=== PATIENT | female | born 1960 | race Caucasian/White ===

== ENCOUNTER 2016-12-13 05:15 | Day surgery (SDC) | payer BC ==
[2016-12-13] MEDS ORDERED: Alum Hydrox/Mag Hydrox/Simeth 30 ML, Lidocaine 2% 15 ML PO ONE ×2 (05:29)
[2016-12-13] MEDS ORDERED: Lidocaine 2% Viscous Solution 15 ML Cup ONE (05:30)
[2016-12-13] MEDS ORDERED: Aluminum Hydroxide/Magnesium Hydroxide/Simethicone Susp 30 ML Cup ONE (05:30)
[2016-12-13] MEDS: Nitroglycerin 0.4 MG Tab.SL SL PRN ×2 (05:45→05:50)
--- NOTE | 2016-12-13 05:53 | EDM.PDOC ---
<Dawson Campbell - Last Filed: 12/13/16 05:48> ED HPI GENERAL MEDICAL PROBLEM - General Chief Complaint: Abdominal Pain Stated Complaint: CHEST DISCOMFORT Time Seen by Provider: 12/13/16 05:31 Source of Information: Reports: Patient History Limitations: Reports: No Limitations - History of Present Illness INITIAL COMMENTS - FREE TEXT/NARRATIVE: This lady comes in complaining of chest pain. She Describes it as a substernal chest pressure which radiates to her low back. It began about midnight or roughly 5-1/2 hours ago. She took a couple of Tums tablets but that didn't seem to help. Drinking water didn't help either she describes herself feeling cold and clammy. She did not get nauseated or have shortness of breath. She had something like this several years ago but she's never been diagnosed with any kind of heart disease. She is a nonsmoker and there are no first-degree relatives with heart disease she denies any chronic illnesses Upper Epigastric Pain Score (Numeric/FACES): 8 - Related Data Allergies Allergy/AdvReac Type Severity Reaction Status Date / Time nystatin Allergy Hives Verified 12/13/16 05:28 Home Meds: Home Meds Gemfibrozil [Lopid] 600 mg PO BIDAC 02/01/15 [History] Omeprazole [Prilosec] 20 mg PO BID 02/01/15 [History] Sertraline [Zoloft] 50 mg PO DAILY 02/01/15 [History] Thyroid,Pork [[place] Thyroid] 30 mg PO DAILY 02/01/15 [History] Triamcinolone Acetonide [Kenalog 0.1% Lotion] 1 applic TOP BID PRN 02/01/15 [ History] Clotrimazole [Lotrimin AF 1% Crm] 1 applic TOP BID 08/22/15 [History] Ondansetron [Zofran ODT] 4 mg PO Q4HR PRN #30 tab.dis 08/29/15 [Rx] Anastrozole [Arimidex] 1 mg PO DAILY 12/13/16 [History] Past Medical History HEENT History: Reports: Allergic Rhinitis, Impaired Vision Cardiovascular History: Reports: None Respiratory History: Reports: None Gastrointestinal History: Reports: Gastritis, GERD, Hiatal Hernia Genitourinary History: Reports: None BILLER History: Reports: Musculoskeletal History: Reports: Arthritis Neurological History: Reports: Head Trauma Psychiatric History: Reports: None Endocrine/Metabolic History: Reports: Hypothyroidism, Obesity/BMI 30+ Hematologic History: Reports: Anemia, Blood Transfusion(s) Immunologic History: Reports: None Oncologic (Cancer) History: Reports: Breast Dermatologic History: Reports: None - Infectious Disease History Infectious Disease History: Reports: Chicken Pox, Measles - Past Surgical History Head Surgeries/Procedures: Reports: None HEENT Surgical History: Reports: Naso-Sinus Surgery Female Surgical History: Reports: D&C, Mastectomy, Tubal Ligation Oncologic Surgical History: Reports: Biopsy of Breast Social & Family History - Family History HEENT: Reports: Impaired Vision, Macular Degeneration Cardiac: Reports: Afib Respiratory: Reports: None GI: Reports: GERD, Hiatal Hernia : Reports: None OBGYN: Reports: None Musculoskeletal: Reports: Arthritis Neurological: Reports: Neuropathy, Peripheral, Other (See Below) Other Neurological Family History: MANAN GEHRIGS DISEASE Psychiatric: Reports: None Endocrine/Metabolic: Reports: None Hematologic: Reports: None Immunologic: Reports: None Dermatologic: Reports: None Oncologic: Reports: Ovarian, Skin - Tobacco Use Smoking Status *Q: Never Smoker Second Hand Smoke Exposure: No - Caffeine Use Caffeine Use: Reports: Coffee - Alcohol Use Days Per Week of Alcohol Use: 2 Number of Drinks Per Day: 1 Total Drinks Per Week: 2 - Recreational Drug Use Recreational Drug Use: No ED ROS GENERAL - Review of Systems Review Of Systems: ROS reveals no pertinent complaints other than HPI. ED EXAM, GENERAL - Physical Exam Exam: See Below Exam Limited By: No Limitations General Appearance: Alert, WD/WN (Mild obesity), Mild Distress Eye Exam: Bilateral Eye: Normal Inspection Neck: Normal Inspection Respiratory/Chest: Lungs Clear Cardiovascular: Regular Rate, Rhythm, No Murmur Peripheral Pulses: 2+: Radial (L), Radial (R), Posterior Tibial (L), Posterior Tibial (R) GI/Abdominal: Non-Tender Extremities: Normal Inspection Neurological: Alert, Oriented Psychiatric: Normal Affect Skin Exam: Warm, Dry Course - Vital Signs Last Recorded V/S: Last Vital Signs Temp 99.0 F 12/13/16 16:48 Pulse 76 12/13/16 16:48 Resp 20 12/13/16 16:48 BP 164/62 H 12/13/16 16:48 Pulse Ox 95 10/29/17 16:48 - Orders/Labs/Meds Orders: Active Orders 24 hr Category Date Time Status Patient Status [ADT] Routine ADT 12/13/16 12:37 Active Ambulate [RC] ASDIRECTED Care 12/13/16 12:37 Active Ambulate [RC] PER UNIT ROUTINE Care 12/13/16 12:37 Active Antiembolic Devices [RC] .Routine Care 12/13/16 12:40 Active Notify Provider Vital Signs [RC] PRN Care 12/13/16 12:39 Active Oxygen Therapy [RC] PRN Care 12/13/16 12:37 Active Pulse Oximetry [RC] CONTINUOUS Care 12/13/16 12:39 Active RT Incentive Spirometry [RC] ASDIRECTED Care 12/13/16 12:37 Active Up With Assistance [RC] ASDIRECTED Care 12/13/16 12:37 Active Up ad Arcelia [RC] ASDIRECTED Care 12/13/16 12:37 Active Up to Chair [RC] ASDIRECTED Care 12/13/16 12:37 Active VTE/DVT Education [RC] Click to Edit Care 12/13/16 12:40 Active Vital Signs [RC] PER UNIT ROUTINE Care 12/13/16 12:37 Active Respiratory Care Assess and Treatment [CONS] Routine Cons 12/13/16 12:37 Active Advance Diet Instructions [DIET] Diet 12/13/16 Dinner Active Abdomen Ltd [US] Stat Exams 12/13/16 07:48 Taken Ang Chest [CT] Stat Exams 12/13/16 06:01 Taken CTA Abd Pelv w Cont [CT] Stat Exams 12/13/16 06:01 Taken Chest 1V Frontal [CR] Urgent Exams 12/13/16 05:29 Taken CBC W/O DIFF,HEMOGRAM [HEME] AM Lab 12/14/16 05:11 Ordered CULTURE ANAEROBIC [RM] Routine Lab 12/13/16 11:53 Results CULTURE WOUND + SMEAR [RM] Routine Lab 12/13/16 11:53 Results HEPATIC FUNCTION PANEL,HFP [CHEM] AM Lab 12/14/16 05:11 Ordered Acetaminophen/HYDROcodone [Ravia 325-5 MG] Med 12/13/16 15:21 Active 1 - 2 tab PO Q4H PRN Anastrozole [Arimidex] Med 12/13/16 14:00 Active 1 mg PO DAILY Clotrimazole [Lotrimin AF 1% Crm] Med 12/13/16 12:45 Active 0 gm TOP BID D5 1/2 NS w/ 20 mEq/L KCl 1,000 ml Med 12/13/16 12:45 Active IV ASDIRECTED Docusate Sodium [Colace] Med 12/13/16 12:37 Active 100 mg PO BID PRN Gemfibrozil [Lopid] Med 12/13/16 16:30 Active 600 mg PO BIDAC Nitroglycerin [Nitrostat] Med 12/13/16 05:38 Active 0.4 mg SL Q5M PRN Ondansetron [Zofran ODT] Med 12/13/16 12:34 Active 4 mg PO Q4H PRN Ondansetron [Zofran] Med 12/13/16 12:37 Active 4 mg IVPUSH Q6H PRN Pantoprazole [ProTONIX] Med 12/13/16 14:00 Active 40 mg PO ACBREAKFAST Sertraline [Zoloft] Med 12/13/16 21:00 Active 50 mg PO BEDTIME Thyroid [[place] Thyroid] Med 12/13/16 14:00 Active 30 mg PO DAILY Triamcinolone Acetonide [Kenalog 0.1% Lotion] Med 12/13/16 12:34 Active 1 applic TOP BID PRN hydrOXYzine HCl [Vistaril] Med 12/13/16 15:23 Active 50 - 75 mg IM Q6H PRN Abdominal Binder [OM.PC] Per Unit Routine Oth 12/13/16 12:39 Ordered DVT/VTE Prophylaxis Reflex [OM.PC] Per Unit Routine Oth 12/13/16 12:40 Ordered Sequential Compression Device [OM.PC] Routine Oth 12/13/16 12:37 Ordered Resuscitation Status Routine Resus Stat 12/13/16 12:37 Ordered EKG 12 Lead [EK] Urgent Ther 12/13/16 05:29 Ordered EKG 12 Lead [EK] Urgent Ther 12/13/16 06:07 Ordered Medication Orders Hydrocodone Bitart/Acetaminophen (Ravia 325-5 Mg) 1 - 2 tab PO Q4H PRN PRN Reason: Pain Last Admin: 12/13/16 16:05 Dose: 1 tab Anastrozole (Arimidex) 1 mg PO DAILY KIMBER Last Admin: 12/13/16 14:38 Dose: 1 mg Clotrimazole (Lotrimin Af 1% Crm) 0 gm TOP BID [facility] Last Admin: 12/13/16 14:35 Dose: Not Given Docusate Sodium (Colace) 100 mg PO BID PRN PRN Reason: Constipation Gemfibrozil (Lopid) 600 mg PO BIDAC [facility] Last Admin: 12/13/16 16:46 Dose: 600 mg Hydroxyzine HCl (Vistaril) 50 - 75 mg IM Q6H PRN PRN Reason: Pain (moderate 4-6) Potassium Chloride/Dextrose/Sod Cl (D5 1/2 Ns W/ 20 Meq/L Kcl) 1,000 mls @ 125 mls/hr IV ASDIRECTED [facility] Last Admin: 12/13/16 13:43 Dose: 125 mls/hr Nitroglycerin (Nitrostat) 0.4 mg SL Q5M PRN PRN Reason: Chest Pain Last Admin: 12/13/16 05:50 Dose: 0.4 mg Admin: 12/13/16 05:45 Dose: 0.4 mg Triamcinolone Acetonide [Kenalog 0 .1% Lotion]-Ptom 1 applic TOP BID PRN PRN Reason: Rash Ondansetron HCl (Zofran Odt) 4 mg PO Q4H PRN PRN Reason: Nausea Ondansetron HCl (Zofran) 4 mg IVPUSH Q6H PRN PRN Reason: Nausea/Vomiting Last Admin: 12/13/16 13:43 Dose: 4 mg Pantoprazole Sodium (Protonix) 40 mg PO ACBREAKFAST [facility] Last Admin: 12/13/16 14:37 Dose: 40 mg Sertraline HCl (Zoloft) 50 mg PO BEDTIME [facility] Thyroid ([place] Thyroid) 30 mg PO DAILY [facility] Last Admin: 12/13/16 14:37 Dose: 30 mg Labs: Laboratory Tests 12/13/16 12/13/16 12/13/16 Range/Units 05:29 05:29 05:58 WBC 6.3 (4.5-11.0) K/uL RBC 4.69 (3.30-5.50) M/uL Hgb 13.5 (12.0-15.0) g/dL Hct 39.0 (36.0-48.0) % MCV 83 (80-98) fL MCH 29 (27-31) pg MCHC 35 (32-36) % Plt Count 283 (150-400) K/uL Neut % (Auto) 84 H (36-66) % Lymph % (Auto) 12 L (24-44) % Ceiba % (Auto) 3 (2-6) % Eos % (Auto) 0 L (2-4) % Baso % (Auto) 0 (0-1) % D-Dimer, Quantitative 107 (0.0-400.0) ng/mL Sodium 139 L (140-148) mmol/L Potassium 3.5 L (3.6-5.2) mmol/L Chloride 103 (100-108) mmol/L Carbon Dioxide 26 (21-32) mmol/L Anion Gap 13.5 (5.0-14.0) mmol/L BUN 18 (7-18) mg/dL Creatinine 0.9 (0.6-1.0) mg/dL Est Cr Clr Drug Dosing 63.78 mL/min Estimated GFR (MDRD) > 60 (>60) Glucose 156 H (74-106) mg/dL Calcium 9.7 (8.5-10.1) mg/dL Total Bilirubin 0.4 (0.2-1.0) mg/dL AST 21 (15-37) U/L ALT 40 (12-78) U/L Alkaline Phosphatase 113 (46-116) U/L Troponin I 0.044 (0.000-0.056) ng/mL Total Protein 8.2 (6.4-8.2) g/dL Albumin 4.2 (3.4-5.0) g/dL Globulin 4.0 H (2.3-3.5) g/dL Albumin/Globulin Ratio 1.1 L (1.2-2.2) Urine Color Urine Appearance Urine pH (4.5-8.0) Ur Specific Wayne (1.008-1.030) Urine Protein (NEGATIVE) mg/dL Urine Glucose (UA) (NEGATIVE) mg/dL Urine Ketones (NEGATIVE) mg/dL Urine Occult Blood (NEGATIVE) Urine Nitrite (NEGATIVE) Urine Bilirubin (NEGATIVE) Urine Urobilinogen (NORMAL) mg/dL Ur Leukocyte Esterase (NEGATIVE) Urine RBC (0-5) Urine WBC (0-5) Ur Epithelial Cells Amorphous Sediment Urine Bacteria Urine Mucus 12/13/16 Range/Units 08:58 WBC (4.5-11.0) K/uL RBC (3.30-5.50) M/uL Hgb (12.0-15.0) g/dL Hct (36.0-48.0) % MCV (80-98) fL MCH (27-31) pg MCHC (32-36) % Plt Count (150-400) K/uL Neut % (Auto) (36-66) % Lymph % (Auto) (24-44) % Ceiba % (Auto) (2-6) % Eos % (Auto) (2-4) % Baso % (Auto) (0-1) % D-Dimer, Quantitative (0.0-400.0) ng/mL Sodium (140-148) mmol/L Potassium (3.6-5.2) mmol/L Chloride (100-108) mmol/L Carbon Dioxide (21-32) mmol/L Anion Gap (5.0-14.0) mmol/L BUN (7-18) mg/dL Creatinine (0.6-1.0) mg/dL Est Cr Clr Drug Dosing mL/min Estimated GFR (MDRD) (>60) Glucose (74-106) mg/dL Calcium (8.5-10.1) mg/dL Total Bilirubin (0.2-1.0) mg/dL AST (15-37) U/L ALT (12-78) U/L Alkaline Phosphatase (46-116) U/L Troponin I (0.000-0.056) ng/mL Total Protein (6.4-8.2) g/dL Albumin (3.4-5.0) g/dL Globulin (2.3-3.5) g/dL Albumin/Globulin Ratio (1.2-2.2) Urine Color Yellow Urine Appearance Clear Urine pH 6.5 (4.5-8.0) Ur Specific Wayne 1.010 (1.008-1.030) Urine Protein Negative (NEGATIVE) mg/dL Urine Glucose (UA) Normal (NEGATIVE) mg/dL Urine Ketones Negative (NEGATIVE) mg/dL Urine Occult Blood Negative (NEGATIVE) Urine Nitrite Negative (NEGATIVE) Urine Bilirubin Negative (NEGATIVE) Urine Urobilinogen Normal (NORMAL) mg/dL Ur Leukocyte Esterase Negative (NEGATIVE) Urine RBC Not seen (0-5) Urine WBC 0-5 (0-5) Ur Epithelial Cells Rare Amorphous Sediment Rare Urine Bacteria Not seen Urine Mucus Rare Meds: Medications Generic Name Dose Route Start Last Admin Trade Name Freq PRN Reason Stop Dose Admin Hydrocodone Bitart/Acetaminophen 1 - 2 tab 12/13/16 15:21 12/13/16 16:05 Ravia 325-5 Mg PO 1 tab Q4H PRN Administration Pain Anastrozole 1 mg 12/13/16 14:00 12/13/16 14:38 Arimidex PO 1 mg DAILY KIMBER Administration Clotrimazole 0 gm 12/13/16 12:45 12/13/16 14:35 Lotrimin Af 1% Crm TOP Not Given BID KIMBER Docusate Sodium 100 mg 12/13/16 12:37 Colace PO BID PRN Constipation Gemfibrozil 600 mg 12/13/16 16:30 12/13/16 16:46 Lopid PO 600 mg BIDAC KIMBER Administration Hydroxyzine HCl 50 - 75 mg 12/13/16 15:23 Vistaril IM Q6H PRN Pain (moderate 4-6) Potassium Chloride/Dextrose/Sod Cl 1,000 mls @ 125 mls/hr 12/13/16 12:45 13:43 D5 1/2 Ns W/ 20 Meq/L Kcl IV 125 mls/hr ASDIRECTED KIMBER Administration Nitroglycerin 0.4 mg 12/13/16 05:38 12/13/16 05:50 Nitrostat SL 0.4 mg Q5M PRN Administration Chest Pain Triamcinolone 1 applic 12/13/16 12:34 Acetonide [Kenalog 0 TOP .1% Lotion]-Ptom BID PRN Rash Ondansetron HCl 4 mg 12/13/16 12:34 Zofran Odt PO Q4H PRN Nausea Ondansetron HCl 4 mg 12/13/16 12:37 12/13/16 13:43 Zofran IVPUSH 4 mg Q6H PRN Administration Nausea/Vomiting Pantoprazole Sodium 40 mg 12/13/16 14:00 12/13/16 14:37 Protonix PO 40 mg ACBREAKFAST KIMBER Administration Sertraline HCl 50 mg 12/13/16 21:00 Zoloft PO BEDTIME KIMBER Thyroid 30 mg 12/13/16 14:00 12/13/16 14:37 [place] Thyroid PO 30 mg DAILY KIMBER Administration Discontinued Medications Generic Name Dose Route Start Last Admin Trade Name Wisam PRN Reason Stop Dose Admin Al Hydroxide/Mg Hydroxide Confirm 12/13/16 05:30 12/13/16 05:34 Mag-Al Plus Administered 12/13/16 05:31 Not Given Dose 30 ml .ROUTE .STK-MED ONE Bupivacaine HCl/Epinephrine Bitart Confirm 12/13/16 11:02 12/13/16 11:47 Marcaine 0.5%/Epinephrine 1:200,000 Administered 12/13/16 11:03 20 ml Dose Administration 50 ml .ROUTE .STK-MED ONE Cefoxitin Sodium Confirm 12/13/16 11:24 Mefoxin Administered 12/13/16 11:25 Dose 2 gm .ROUTE .STK-MED ONE Al Hydroxide/Mg Hydroxide 30 0 ml 12/13/16 05:29 12/13/16 05:32 ml/ Lidocaine HCl 15 ml PO 12/13/16 05:30 45 ml ONETIME ONE Administration Dexamethasone Confirm 12/13/16 11:05 Dexamethasone Administered 12/13/16 11:06 Dose 4 mg .ROUTE .STK-MED ONE Fentanyl Citrate Confirm 12/13/16 11:04 Fentanyl Administered 12/13/16 11:05 Dose 500 mcg .ROUTE .STK-MED ONE Glycopyrrolate Confirm 12/13/16 11:05 Robinul Administered 12/13/16 11:06 Dose 1 mg .ROUTE .STK-MED ONE Hydromorphone HCl 0 mg 12/13/16 12:06 12/13/16 12:43 Dilaudid Shake Splitter 15 Mg In Ns 30 Ml IV 15 mg ASDIRECTED PRN Administration [employer] Protocol Sodium Chloride 100 mls @ 4 mls/sec 12/13/16 06:45 12/13/16 07:08 Normal Saline IV 4 mls/sec ASDIRECTED KIMBER Administration Lactated Ringer's 1,000 mls @ 999 mls/hr 12/13/16 11:15 12/13/16 11:08 Ringers, Lactated IV 999 mls/hr BOLUS KIMBER Administration Iopamidol 100 ml 12/13/16 06:45 12/13/16 07:08 Isovue-370 (76%) IV 12/13/16 23:00 100 ml . DIRECTED KIMBER Administration Lidocaine HCl Confirm 12/13/16 05:30 12/13/16 05:34 Xylocaine 2% Viscous Administered 12/13/16 05:31 Not Given Dose 15 ml .ROUTE .STK-MED ONE Morphine Sulfate 8 mg 12/13/16 05:54 12/13/16 06:01 Morphine IVPUSH 12/13/16 05:55 8 mg ONETIME ONE Administration Naloxone HCl 0.1 mg 12/13/16 12:06 Narcan IV ASDIRECTED PRN decreased respiratory rate Neostigmine Methylsulfate Confirm 12/13/16 11:05 Neostigmine Administered 12/13/16 11:06 Dose 5 mg .ROUTE .STK-MED ONE Ondansetron HCl Confirm 12/13/16 11:05 Zofran Administered 12/13/16 11:06 Dose 4 mg .ROUTE .STK-MED ONE Propofol Confirm 12/13/16 11:05 Diprivan 20 Ml Administered 12/13/16 11:06 Dose 200 mg .ROUTE .STK-MED ONE Rocuronium Cornell Confirm 12/13/16 11:05 Zemuron Administered 12/13/16 11:06 Dose 50 mg .ROUTE .STK-MED ONE Scopolamine 1.5 mg 12/13/16 11:06 12/13/16 14:35 Transderm-Scop TOP 12/13/16 11:07 Not Given ONETIME ONE Sertraline HCl 50 mg 12/13/16 14:00 12/13/16 15:35 Zoloft PO Not Given DAILY KIMBER Sodium Chloride 10 ml 12/13/16 06:35 12/13/16 07:08 Saline Flush FLUSH 12/13/16 06:36 10 ml ONETIME ONE Administration Succinylcholine Chloride Confirm 12/13/16 11:05 Quelicin Administered 12/13/16 11:06 Dose 200 mg .ROUTE .STK-MED ONE - Re-Assessments/Exams Free Text/Narrative Re-Assessment/Exam: 12/13/16 05:51 Initial EKG shows sinus rhythm 64 bpm, there is a Q-wave in lead 3 otherwise QRSs all normal. ST and T waves normal Initially the patient was given a GI cocktail and after about 5 minutes it gave no benefit. We then went to sublingual nitroglycerin Departure - Departure Disposition: Admitted As Inpatient 64 Clinical Impression: Cholecystitis Abdominal pain Qualifiers: Abdominal location: upper abdomen, unspecified Qualified Code(s): R10.10 - Upper abdominal pain, unspecified - My Orders Last 24 Hours: My Active Orders 12/13/16 07:48 Abdomen Ltd [US] Stat - Assessment/Plan Last 24 Hours: My Active Orders 12/13/16 07:48 Abdomen Ltd [US] Stat <Dion Rebolledo - Last Filed: 12/13/16 17:18> Course - Re-Assessments/Exams Free Text/Narrative Re-Assessment/Exam: 12/13/16 09:41 IV morphine helped her pain somewhat, GI cocktail had no effect. Care was turned myself pending a CT of the chest abdomen and pelvis with IV contrast. Other than some mild gallbladder findings, the CT was basically negative. A gallbladder ultrasound confirmed a positive Campa sign, gallbladder sludge and small stones but no wall thickening or significant inflammatory changes. There were 2 lesions on the liver were not seen on CT that showed up on ultrasound that were concerning. I discussed these findings with the patient and Dr. Wilson, she'll be admitted to consider cholecystectomy and further evaluation of liver lesions. Departure - Departure Time of Disposition: 11:17 Condition: Fair
[2016-12-13] MEDS ORDERED: Morphine 10 MG/ML Syringe IVPUSH ONE (05:54)
[2016-12-13] MEDS ORDERED: Sodium Chloride 0.9% 10 ML Syringe FLUSH ONE (06:35)
[2016-12-13] MEDS ORDERED: Iopamidol 755 Mg/ML 100 ML Bottle IV SCH (06:45)
[2016-12-13] MEDS ORDERED: Sodium Chloride 0.9% 100 ML IV SCH (06:45)
[2016-12-13] MEDS ORDERED: Bupivacaine 0.5%/EPINEPHrine 1:200,000 50 ML MDV ONE (11:02)
[2016-12-13] MEDS ORDERED: Ondansetron 4 MG/2 ML SDV ONE (11:05)
[2016-12-13] MEDS ORDERED: Glycopyrrolate 0.2 MG/ML 5 ML MDV ONE (11:05)
[2016-12-13] MEDS ORDERED: Propofol 200 MG/20 ML SDV ONE (11:05)
[2016-12-13] MEDS ORDERED: Dexamethasone 4 MG/ML SDV ONE (11:05)
[2016-12-13] MEDS ORDERED: Rocuronium 50 MG/5 ML Vial ONE (11:05)
[2016-12-13] MEDS ORDERED: Neostigmine Methylsulfate 1 MG/ML 5 ML Syringe ONE (11:05)
[2016-12-13] MEDS ORDERED: Succinylcholine 200 MG/10 ML MDV ONE (11:05)
[2016-12-13] MEDS: Scopolamine 1.5 MG Transdermal Patch TOP ONE ×2 (11:09→14:35)
[2016-12-13] MEDS ORDERED: Lactated Ringers 1,000 ML IV SCH (11:15)
[2016-12-13] MEDS ORDERED: cefOXitin 2 GM Vial ONE (11:24)
[2016-12-13] MEDS ORDERED: HYDROmorphone/Normal Saline 15 MG/30 ML PCA IV PRN (12:06)
[2016-12-13] MEDS ORDERED: Naloxone 0.4 MG/ML SDV IV PRN (12:06)
[2016-12-13] MEDS ORDERED: Ondansetron 4 MG Tab.DIS PO PRN (12:34)
[2016-12-13] MEDS ORDERED: TRIAMCINOLONE ACETONIDE TOP PRN (12:34)
[2016-12-13] MEDS ORDERED: Docusate Sodium 100 MG Cap PO PRN (12:37)
[2016-12-13] MEDS ORDERED: Non-Formulary Medication 1 Each (Omeprazole [Prilosec] 20 MG) PO SCH (12:45)
[2016-12-13] MEDS: D5 1/2 NS w/ 20 mEq/L KCl 1,000 ML IV SCH ×2 (13:43→22:31)
[2016-12-13] MEDS: Ondansetron 4 MG/2 ML SDV IVPUSH PRN (13:43)
[2016-12-13] MEDS ORDERED: Sertraline 50 MG Tab PO SCH ×2 (14:00→21:00)
[2016-12-13] MEDS: Clotrimazole 1% Crm 30 GM Tube TOP SCH ×2 (14:35→22:45)
[2016-12-13] MEDS: Pantoprazole 40 MG Tab.CR PO SCH (14:37)
[2016-12-13] MEDS: Anastrozole 1 MG Tab PO SCH (14:38)
[2016-12-13] MEDS ORDERED: hydrOXYzine HCl 100 MG/2 ML SDV IM PRN (15:23)
[2016-12-13] MEDS: Acetaminophen/HYDROcodone 325-5 MG Tab PO PRN (16:05)
[2016-12-13] MEDS: Gemfibrozil 600 MG Tab PO SCH (16:46)
[2016-12-13] MEDS: Morphine 2 MG/ML Syringe IVPUSH PRN ×2 (20:08→23:11)
[2016-12-13] MEDS: LORazepam 2 MG/ML MDV IVPUSH PRN ×2 (20:09→23:08)
[2016-12-14] MEDS: D5 1/2 NS w/ 20 mEq/L KCl 1,000 ML IV SCH (05:49)
[2016-12-14] MEDS: Ondansetron 4 MG/2 ML SDV IVPUSH PRN (05:51)
[2016-12-14] MEDS: Gemfibrozil 600 MG Tab PO SCH ×2 (07:46→17:10)
[2016-12-14] MEDS: Metoclopramide 10 MG/2 ML SDV IVPUSH SCH ×2 (07:50→16:00)
[2016-12-14] MEDS: Metoclopramide 10 MG/2 ML SDV ONE (07:55)
[2016-12-14] MEDS: Pantoprazole 40 MG Tab.CR PO SCH (08:50)
[2016-12-14] MEDS: Anastrozole 1 MG Tab PO SCH (08:53)
--- NOTE | 2016-12-14 09:16 | CR ---
Chest 1V Frontal HISTORY: pain COMPARISON: 03/11/2008 FINDINGS: Portable chest, 0537 hours. Lungs appear clear and normally aerated. Cardiomediastinal silhouette is within normal limits. No vas cular redistribution or pleural fluid can be seen. Bony structures and soft tissues are unremarkable. IMPRESSION: No acute chest abnormality identified.
[2016-12-14] MEDS ORDERED: Ondansetron 4 MG/2 ML SDV IVPUSH PRN (09:52)
[2016-12-14] MEDS: Clotrimazole 1% Crm 30 GM Tube TOP SCH (13:27)
[2016-12-14] MEDS: Acetaminophen/HYDROcodone 325-5 MG Tab PO PRN (13:57)
--- NOTE | 2016-12-14 15:21 | PCM.DCSUM1 ---
Discharge Summary - Hospital Course Free Text/Narrative:: This 56 year old white female presented to the ER yesterday complaining of less than 24 hours of severe upper abdominal pain. CT and US of her abdomen showed acute cholecytitis with sludge. LFTs were unremarkable. She was taken to the OR for a laparoscopic cholecytectomy which showed acute cholecysitis with " white bile" consistent with chronic obstruction of her cystic duct. She received 2 gms of Mefoxin preoperatively. Post operatively she complained of nausea and vomiting when in the afternoon of her first post operative day all these symptoms resolved. She now can eat, feels well and wants to go home. She is discharged to home in good condition. Her post operative LFTs included a normal bilirubin and and alkaline phosphatase. Her CT and US also were suggestive of liver lesions which could not be seen at surgery and will need further work up. Brief History: See above narrative - Discharge Data Discharge Date: 12/14/16 Discharge Disposition: Home, Self-Care 01 Condition: Good - Discharge Diagnosis/Problem(s) (1) Cholecystitis SNOMED Code(s): 82568235 ICD Code: K81.9 - CHOLECYSTITIS, UNSPECIFIED Status: Acute Current Visit : Yes - Patient Summary/Data Operative Procedure(s) Performed: Laparoscopic cholecystectomy Consults: Consultations 12/13/16 12:37 Respiratory Care Assess and Treatment [CONS] Routine Comment: Physician Instructions: Hospital Course: See above narrative. - Patient Instructions Diet: Usual Diet as Tolerated Activity, Other: Avoid activity that causes discomfort. Driving, Other: Do not drive while taking narcotic pain medication. Showering/Bathing: Shower in AM Notify Provider of: Fever, Increased Pain, Swelling and Redness, Drainage, Nausea and/or Vomiting - Discharge Plan Prescriptions/Med Rec: Acetaminophen/HYDROcodone [Check 325-5 MG] 1 - 2 tab PO Q4H PRN #30 tablet PRN Reason: Abdominal Pain Home Medications: Home Meds Gemfibrozil [Lopid] 600 mg PO BIDAC 02/01/15 [History] Omeprazole [Prilosec] 20 mg PO BID 02/01/15 [History] Sertraline [Zoloft] 50 mg PO DAILY 02/01/15 [History] Thyroid,Pork [Eva Thyroid] 30 mg PO DAILY 02/01/15 [History] Triamcinolone Acetonide [Kenalog 0.1% Lotion] 1 applic TOP BID PRN 02/01/15 [ History] Clotrimazole [Lotrimin AF 1% Crm] 1 applic TOP BID 08/22/15 [History] Ondansetron [Zofran ODT] 4 mg PO Q4HR PRN #30 tab.dis 08/29/15 [Rx] Anastrozole [Arimidex] 1 mg PO DAILY 12/13/16 [History] Acetaminophen/HYDROcodone [Check 325-5 MG] 1 - 2 tab PO Q4H PRN #30 tablet 12/14 [Rx] Docusate Sodium [Colace] 100 mg PO BID #50 cap 12/14/16 [Rx] Forms: ED Department Discharge Referrals: PCP,None [Primary Care Provider] - Keo Wilson MD [Physician] - - Discharge Summary/Plan Comment DC Time >30 min.: Yes Discharge Summary/Plan Comment: See above narrative. - Patient Data Vitals - Most Recent: Last Vital Signs Temp 100.4 F 12/14/16 12:37 Pulse 86 12/14/16 12:37 Resp 16 12/14/16 12:37 BP 111/62 12/14/16 12:37 Pulse Ox 93 L 12/14/16 12:37 Weight - Most Recent: 220 lb I&O - Last 24 hours: Intake & Output 12/14/16 12/14/16 12/14/16 06:59 14:59 22:59 Intake Total 1370 560 Output Total 775 1000 Balance 595 -440 Lab Results - Last 24 hrs: Laboratory Results - last 24 hr 12/14/16 12/14/16 Range/Units 05:50 05:50 WBC 10.8 (4.5-11.0) K/uL RBC 4.40 (3.30-5.50) M/uL Hgb 12.7 (12.0-15.0) g/dL Hct 36.4 (36.0-48.0) % MCV 83 (80-98) fL MCH 29 (27-31) pg MCHC 35 (32-36) % Plt Count 147 L (150-400) K/uL Total Bilirubin 0.6 (0.2-1.0) mg/dL Direct Bilirubin 0.07 (0.0-0.2) mg/dL Indirect Bilirubin TNP AST 52 H D (15-37) U/L ALT 69 (12-78) U/L Alkaline Phosphatase 86 (46-116) U/L Total Protein 7.3 (6.4-8.2) g/dL Albumin 3.6 (3.4-5.0) g/dL Globulin 3.7 H (2.3-3.5) g/dL Albumin/Globulin Ratio 1.0 L (1.2-2.2) JAMES Results - Last 24 hrs: Microbiology 12/13/16 11:53 Gram Stain - Final Gallbladder Fluid - Bile Wound Culture - Preliminary NO GROWTH AFTER 1 DAY Anaerobic Culture - Preliminary NO GROWTH AFTER 1 DAY Med Orders - Current: Current Medications Hydrocodone Bitart/Acetaminophen (Check 325-5 Mg) 1 - 2 tab PO Q4H PRN PRN Reason: Pain Last Admin: 12/14/16 13:57 Dose: 2 tab Anastrozole (Arimidex) 1 mg PO DAILY [facility] Last Admin: 12/14/16 08:53 Dose: 1 mg Clotrimazole (Lotrimin Af 1% Crm) 0 gm TOP BID [facility] Last Admin: 12/14/16 13:27 Dose: Not Given Docusate Sodium (Colace) 100 mg PO BID PRN PRN Reason: Constipation Gemfibrozil (Lopid) 600 mg PO BIDAC [facility] Last Admin: 12/14/16 07:46 Dose: Not Given Hydroxyzine HCl (Vistaril) 50 - 75 mg IM Q6H PRN PRN Reason: Pain (moderate 4-6) Last Admin: 12/14/16 10:26 Dose: 75 mg Potassium Chloride/Dextrose/Sod Cl (D5 1/2 Ns W/ 20 Meq/L Kcl) 1,000 mls @ 125 mls/hr IV ASDIRECTED [facility] Last Admin: 12/14/16 05:49 Dose: 125 mls/hr Lorazepam (Ativan) 0.5 - 1 mg IVPUSH Q1H PRN PRN Reason: Nausea Last Admin: 12/13/16 23:08 Dose: 1 mg Metoclopramide HCl (Reglan) 10 mg IVPUSH Q6H [facility] Last Admin: 12/14/16 07:50 Dose: 10 mg Morphine Sulfate (Morphine) 1 mg IVPUSH Q10M PRN PRN Reason: Pain Last Admin: 12/13/16 23:11 Dose: 1 mg Nitroglycerin (Nitrostat) 0.4 mg SL Q5M PRN PRN Reason: Chest Pain Last Admin: 12/13/16 05:50 Dose: 0.4 mg Triamcinolone Acetonide [Kenalog 0 .1% Lotion]-Ptom 1 applic TOP BID PRN PRN Reason: Rash Ondansetron HCl (Zofran Odt) 4 mg PO Q4H PRN PRN Reason: Nausea Last Admin: 12/13/16 19:24 Dose: 4 mg Ondansetron HCl (Zofran) 4 mg IVPUSH Q4H PRN PRN Reason: Nausea/Vomiting Last Admin: 12/14/16 10:18 Dose: 4 mg Pantoprazole Sodium (Protonix) 40 mg PO ACBREAKFAST KIMBER Last Admin: 12/14/16 08:50 Dose: 40 mg Sertraline HCl (Zoloft) 50 mg PO BEDTIME [facility] Last Admin: 12/13/16 22:46 Dose: 50 mg Thyroid (Eva Thyroid) 30 mg PO DAILY [facility] Last Admin: 12/14/16 08:52 Dose: 30 mg Discontinued Medications Al Hydroxide/Mg Hydroxide (Mag-Al Plus) Confirm Administered Dose 30 ml .ROUTE .STK-MED ONE Stop: 12/13/16 05:31 Last Admin: 12/13/16 05:34 Dose: Not Given Bupivacaine HCl/Epinephrine Bitart (Marcaine 0.5%/Epinephrine 1:200,000) Confirm Administered Dose 50 ml .ROUTE .STK-MED ONE Stop: 12/13/16 11:03 Last Admin: 12/13/16 11:47 Dose: 20 ml Cefoxitin Sodium (Mefoxin) Confirm Administered Dose 2 gm .ROUTE .STK-MED ONE Stop: 12/13/16 11:25 Al Hydroxide/Mg Hydroxide 30 (ml/ Lidocaine HCl 15 ml) 0 ml PO ONETIME ONE Stop: 12/13/16 05:30 Last Admin: 12/13/16 05:32 Dose: 45 ml Dexamethasone (Dexamethasone) Confirm Administered Dose 4 mg .ROUTE .STK-MED ONE Stop: 12/13/16 11:06 Fentanyl Citrate (Fentanyl) Confirm Administered Dose 500 mcg .ROUTE .STK-MED ONE Stop: 12/13/16 11:05 Glycopyrrolate (Robinul) Confirm Administered Dose 1 mg .ROUTE .STK-MED ONE Stop: 12/13/16 11:06 Hydromorphone HCl (Dilaudid Tank Pumper 15 Mg In Ns 30 Ml) 0 mg IV ASDIRECTED PRN; Protocol PRN Reason: [employer] PAIN CONTROL Last Admin: 12/13/16 12:43 Dose: 15 mg Sodium Chloride (Normal Saline) 100 mls @ 4 mls/sec IV ASDIRECTED [facility] Last Admin: 12/13/16 07:08 Dose: 4 mls/sec Lactated Ringer's (Ringers, Lactated) 1,000 mls @ 999 mls/hr IV BOLUS KIMBER Last Admin: 12/13/16 11:08 Dose: 999 mls/hr Iopamidol (Isovue-370 (76%)) 100 ml IV . DIRECTED KIMBER Stop: 12/13/16 23:00 Last Admin: 12/13/16 07:08 Dose: 100 ml Lidocaine HCl (Xylocaine 2% Viscous) Confirm Administered Dose 15 ml .ROUTE .STK -MED ONE Stop: 12/13/16 05:31 Last Admin: 12/13/16 05:34 Dose: Not Given Metoclopramide HCl (Reglan) Confirm Administered Dose 10 mg .ROUTE .STK-MED ONE Stop: 12/14/16 07:49 Last Admin: 12/14/16 07:55 Dose: 10 mg Morphine Sulfate (Morphine) 8 mg IVPUSH ONETIME ONE Stop: 12/13/16 05:55 Last Admin: 12/13/16 06:01 Dose: 8 mg Naloxone HCl (Narcan) 0.1 mg IV ASDIRECTED PRN PRN Reason: decreased respiratory rate Neostigmine Methylsulfate (Neostigmine) Confirm Administered Dose 5 mg .ROUTE .STK-MED ONE Stop: 12/13/16 11:06 Ondansetron HCl (Zofran) Confirm Administered Dose 4 mg .ROUTE .STK-MED ONE Stop: 12/13/16 11:06 Ondansetron HCl (Zofran) 4 mg IVPUSH Q6H PRN PRN Reason: Nausea/Vomiting Last Admin: 12/14/16 05:51 Dose: 4 mg Propofol (Diprivan 20 Ml) Confirm Administered Dose 200 mg .ROUTE .STK-MED ONE Stop: 12/13/16 11:06 Rocuronium [place] (Zemuron) Confirm Administered Dose 50 mg .ROUTE .STK-MED ONE Stop: 12/13/16 11:06 Scopolamine (Transderm-Scop) 1.5 mg TOP ONETIME ONE Stop: 12/13/16 11:07 Last Admin: 12/13/16 14:35 Dose: Not Given Sertraline HCl (Zoloft) 50 mg PO DAILY [facility] Last Admin: 12/13/16 15:35 Dose: Not Given Sodium Chloride (Saline Flush) 10 ml FLUSH ONETIME ONE Stop: 12/13/16 06:36 Last Admin: 12/13/16 07:08 Dose: 10 ml Succinylcholine Chloride (Quelicin) Confirm Administered Dose 200 mg .ROUTE .STK -MED ONE Stop: 12/13/16 11:06 *Q Meaningful Use (DIS) - VTE *Q VTE Criteria *Q: - Stroke *Q Stroke Criteria *Q: - AMI *Q AMI Criteria *Q:
[2016-12-14 16:03] VITALS: BP 106/55
[2016-12-15] MEDS: Metoclopramide 10 MG/2 ML SDV ONE (08:39)
--- NOTE | 2016-12-20 09:31 | OR ---
DATE OF PROCEDURE: 12/13/2016 PREOPERATIVE DIAGNOSIS: Acute and chronic cholecystitis with cholelithiasis. POSTOPERATIVE DIAGNOSIS: Acute and chronic cholecystitis with cholelithiasis. PROCEDURE: Laparoscopic cholecystectomy. SURGEON: Keo Wilson MD. ANESTHESIA: General endotracheal. INDICATION: This is a 56-year-old white female who, about 6 hours prior to coming to the emergency room, noted onset of lower chest pain and upper abdominal pain, which radiated into her back. Cardiac workup was negative. She had a similar episode a few years ago, but it was never documented as to its etiology. She was found to be afebrile. I found her to be tender in the right upper quadrant with a positive Campa sign. Her liver functions were unremarkable. She had a CAT scan, which suggested sludge in the gallbladder. Followup ultrasound showed sludge and stones, which were small, in the gallbladder. No gallbladder wall thickening. The ductal system was unremarkable. The ultrasound also noted a couple of lesions in the liver. She has a history of breast cancer. This will need to be followed up. She was admitted then for a laparoscopic cholecystectomy. I counseled her for surgery including risks and alternatives, and she gave her informed consent to proceed. DESCRIPTION OF PROCEDURE: After adequate general endotracheal anesthesia was obtained, the patient's abdomen was prepped and draped in the usual sterile fashion. Time-out was held. An infraumbilical semicircular incision was made. Under direct vision , a 12-mm port was introduced into the abdomen and through this incision, using the Optiview technique. The camera was introduced into the abdomen and the abdomen was insufflated to a pressure of 15 mmHg with carbon dioxide. No evidence of intraabdominal injury was seen. Under direct vision, an 11-mm port was placed in the epigastrium and a 5-mm port was placed in the right lower quadrant. The gallbladder was examined. It was noted to have a reddish hue consistent with acute cholecystitis. The cystic duct and arteries were dissected free. The gallbladder itself was noted to be quite tense. We did open the gallbladder to relieve some of the pressure and encountered white (clear colored) bile. The cystic duct and arteries were then each clipped up on the gallbladder, 3 times proximally for the duct and twice for the artery and divided between clips. Some lymphatics were clipped and divided. The gallbladder was dissected free from the gallbladder bed using Bovie electrocautery. The gallbladder was placed in a sample retrieval bag and elevated up through the anterior abdominal wall via the epigastric port site. It was delivered from the field, where it was cultured. It was noted to contain small stones. The epigastric port was re- introduced back into the abdomen. The gallbladder bed was irrigated and suctioned dry. Hemostasis was noted. Exam of the liver showed we could not see the masses noted on the ultrasound as they were deep within the body of the liver. The fascial closure device was then used to place an 0 Vicryl stitch in the epigastric fascial defect. It was tied down. The infraumbilical port was removed with an interrupted stitch of 0 Vicryl used to close this fascial defect. We evacuated as much CO2 as we could from the 5-mm port site in the right lower quadrant and then this port was removed. Lidocaine 1% in a 50:50 mix with 0.5% Marcaine with epinephrine was infiltrated about all incisions. 4-0 Vicryl used in a subcuticular stitch was placed to approximate the skin of the incisions. Dermabond was applied. The anesthesia was reversed. She was extubated and brought to recovery room in a good condition. Keo Wilson MD /[id number] MTDD
== END 2016-12-14 17:11 | disposition home or self-care (01) ==
LOC: JP.ED 05:15 → JP.SDS 10:53 → JP.MS 12:37 → JP.SDS 12-14 17:11
PROVIDERS: ATTEND Surgery
DX: K80.10 Calculus of gallbladder with chronic cholecystitis without obstruction (principal); K21.9 Gastro-esophageal reflux disease without esophagitis; E03.9 Hypothyroidism, unspecified; E66.9 Obesity, unspecified; Z88.8 Allergy status to other drugs, medicaments and biological substances; Z79.899 Other long term (current) drug therapy; Z68.30 Body mass index [BMI] 30.0-30.9, adult; Z98.51 Tubal ligation status; Z98.890 Other specified postprocedural states
CPT/HCPCS: 36415; 47562; 71010; 71275; 74174; 76705; 80053; 80076; 81001; 84484; 85025; 85027; 85379; 87070; 87075; 87205; 88304; 93005; 99285; A9270; J0330; J0694; J1100; J1170; J2060; J2270; J2405; J2704; J2710; J2765; J3010; J3410; J3480; J7030; J7050; J7120; Q9967

== ENCOUNTER 2017-08-16 06:31 | Day surgery (SDC) | payer BC ==
[~2017-08-16 06:31] MED LIST: Sodium Chloride 0.9% 1,000 ML IV SCH
[2017-08-16] MEDS ORDERED: Midazolam 1 MG/ML 2 ML SDV ONE (07:16)
[2017-08-16] MEDS ORDERED: fentaNYL 100 MCG/2 ML SDV ONE (07:16)
[2017-08-16] MEDS ORDERED: Propofol 200 MG/20 ML SDV ONE (07:16)
[2017-08-16] MEDS ORDERED: Ondansetron 4 MG/2 ML SDV ONE (07:54)
[2017-08-16 09:28] VITALS: BP 149/90
--- NOTE | 2017-08-16 12:16 | OR ---
DATE OF PROCEDURE: 08/16/2017 PROCEDURE: Colonoscopy. FINDINGS: Normal colonoscopy. PREOPERATIVE DIAGNOSIS: Screening colonoscopy. POSTOPERATIVE DIAGNOSIS: Screening colonoscopy. RISKS: Risks, benefits, alternatives, and limitations including, but not limited to infection, bleeding, and perforation were explained to the patient. They wished to proceed. PROCEDURE IN DETAIL: The patient was placed in the left lateral decubitus position. Digital rectal exam was performed without abnormality. The scope was introduced and advanced atraumatically to the ileocecal valve. The scope was brought back to the ascending, transverse, descending colon, and retroflexed. The patient had 1 , which was small in the sigmoid colon. The patient tolerated the procedure well. Parker Rock MD /[id number]
== END 2017-08-16 09:29 | disposition home or self-care (01) ==
LOC: JP.SDS 06:31
PROVIDERS: ATTEND Surgery
DX: Z12.11 Encounter for screening for malignant neoplasm of colon (principal); E03.9 Hypothyroidism, unspecified; F41.9 Anxiety disorder, unspecified; K21.9 Gastro-esophageal reflux disease without esophagitis; E78.1 Pure hyperglyceridemia; Z85.3 Personal history of malignant neoplasm of breast; Z79.811 Long term (current) use of aromatase inhibitors; Z79.899 Other long term (current) drug therapy; Z88.8 Allergy status to other drugs, medicaments and biological substances
CPT/HCPCS: 45378; J2250; J2405; J2704; J3010; J7030

== ENCOUNTER → 2022-05-05 | Day surgery (SDC) | payer BC ==
[~2022-05-05] MED LIST changes: +Lactated Ringers 1,000 ML IV SCH; +Midazolam 1 MG/ML 2 ML SDV ONE; +Propofol 200 MG/20 ML SDV ONE; -Sodium Chloride 0.9% 1,000 ML IV SCH; +fentaNYL 50 MCG/ML SDV ONE
[2022-05-05 09:30] VITALS: BP 142/59; PULSE 68
== END ==
LOC: JP.SDS 07:00
PROVIDERS: ATTEND Family Medicine
DX: D12.2 Benign neoplasm of ascending colon (principal); K57.30 Diverticulosis of large intestine without perforation or abscess without bleeding; E03.9 Hypothyroidism, unspecified; K21.9 Gastro-esophageal reflux disease without esophagitis; E66.9 Obesity, unspecified; Z88.8 Allergy status to other drugs, medicaments and biological substances
CPT/HCPCS: 45380; J2250; J2704; J3010; J7120